=== PATIENT | female | born 1985 | race American Indian/Alaskan Native ===

== ENCOUNTER 2018-06-19 16:46 | Outpatient (CLI) | payer MEDICAID ==
[2018-06-19 17:49] LABS: Basophils # (Auto) 0.1 K/mm3 (0.0-0.1); Eosinophils # (Auto) 0.2 K/mm3 (0.0-0.4); Eosinophils % (Auto) 1.6 % (0.0-4.3); Hematocrit 32.3 % (30.3-42.9); Hemoglobin 10.7 gm/dl (10.1-14.3); Lymphocytes # (Auto) 3.2 K/mm3 (1.2-5.4); Lymphocytes % (Auto) 29.2 % (13.4-35.0); Mean Corpuscular HGB Conc 33 % (30-34); Mean Corpuscular Volume 88 fl (79-97); Monocytes # (Auto) 0.9 K/mm3 (0.0-0.8); Monocytes % (Auto) 8.1 % (0.0-7.3); Platelet Count 358 K/mm3 (140-440); Red Blood Count 3.67 M/mm3 (3.65-5.03); Red Cell Distribution Width 15.9 % (13.2-15.2)
[2018-06-19 18:11] LABS: Alanine Aminotransferase 19 units/L (7-56); Albumin 4.2 g/dL (3.9-5); BUN/Creatinine Ratio 25; Blood Urea Nitrogen 15 mg/dL (7-17); Calcium 8.7 mg/dL (8.4-10.2); Hemolysis Index 0
[2018-06-19 18:12] LABS: Chol/HDL Ratio 2.81 %
== END 2018-06-19 16:47 | disposition home or self-care (01) ==
LOC: XRAY 16:46
PROVIDERS: ATTEND Internal Medicine
DX: J45.909 Unspecified asthma, uncomplicated (principal)
CPT/HCPCS: 36415; 80053; 80061; 82785; 82803; 84436; 84443; 85025

== ENCOUNTER 2018-12-10 11:46 | Emergency (ER) | payer MEDICAID ==
[2018-12-10 12:02] VITALS: BP 121/81
[2018-12-10] MEDS ORDERED: IPRATROPIUM 0.02% NEBU 2.5 ML IH ONE (12:02)
--- NOTE | 2018-12-10 12:02 | Event Note ---
ED Screening Note Date of service: 12/10/18 Time: 11:59 ED Screening Note: 33 y o f with hx of Asthma presents with wheezing and sob x couple of days out of meds PCP sent here to be evaluated received breathing treatment at PCP This initial assessment/diagnostic orders/clinical plan/treatment(s) is/are subject to change based on patients health status, clinical progression and re- assessment by fellow clinical providers in the ED. Further treatment and workup at subsequent clinical providers discretion. Patient/guardian urged not to elope from the ED as their condition may be serious if not clinically assessed and managed. Initial orders include: solumedrol cough supressent albuterol inhaler and nebs refill [facility] eval
--- NOTE | 2018-12-10 12:38 | Emergency Department Report ---
Minor Respiratory - HPI Chief Complaint: Dyspnea/Respdistress Stated Complaint: ASTHMA ATTACK/SOB Time Seen by Provider: 12/10/18 11:59 Duration: Today Pain Location: Chest Severity: mild Minor Respiratory: Yes Able to Tolerate Fluids, Yes Cough, No Rhinorrhea, No Sore Throat, No Ear Pain, No Sick Contacts, No Hemoptysis, No Chest Pain, No Shortness of Breath, No Fever Other History: 33 yo sent by pcp for steroid injection due to asthma ae. he gave her a duoneb. she has minimal wheezing on exam. no fever or chills. no purulent sputum. no pain. ED Review of Systems ROS: Stated complaint: ASTHMA ATTACK/SOB Other details as noted in HPI Comment: All other systems reviewed and negative ED Past Medical Hx - Past Medical History Previous Medical History?: Yes Hx Asthma: Yes - Surgical History Past Surgical History?: Yes Additional Surgical History: - Family History Family history: no significant - Social History Smoking Status: Never Smoker Substance Use Type: None - Medications Home Medications: Home Medications Medication Instructions Recorded Confirmed Last Taken Type ALBUTEROL NEB's [Proventil 0.083% 2.5 mg IH TID PRN #1 box 12/10/18 Unknown Rx NEBS] Albuterol Sulfate [Proair 90 mcg IH QID PRN #1 aer.pow.ba 12/10/18 Unknown Rx Respiclick] Cetirizine HCl [ZyrTEC] 10 mg PO DAILY #30 capsule 12/10/18 Unknown Rx Fluticasone [Flonase] 1 spray NS QDAY #1 bottle 12/10/18 Unknown Rx predniSONE [Deltasone] 20 mg PO DAILY #5 tablet 12/10/18 Unknown Rx Minor Respiratory Exam - Exam General: Vital signs noted. No distress. Alert and acting appropriately. HEENT: Yes Moist Mucous Membranes, No Pharyngeal Erythema, No Pharyngeal Exudates Ear: Neither TM Bulge, Neither TM Erythema, Neither EAC Pain, Neither EAC Discharge Neck: Yes Supple, No Adenopathy Lungs: Yes Good Air Exchange, Yes Wheezes, No Ronchi, No Stridor Heart: Yes Regular, No Murmur Abdomen: No Tenderness, No Peritoneal Signs Skin: No Rash Neurologic: Alert and oriented, no deficits. Musculoskeletal: Unremarkable. ED Course Vital Signs 12/10/18 12:01 Temperature 98.2 F Pulse Rate 92 H Respiratory 16 Rate Blood Pressure 121/81 O2 Sat by Pulse 99 Oximetry ED Medical Decision Making - Radiology Data Radiology results: report reviewed, image reviewed - Medical Decision Making solumedrol and albuterol xray with pna dc home with dc plan of care and follow up Vital Signs 12/10/18 12:01 Temperature 98.2 F Pulse Rate 92 H Respiratory 16 Rate Blood Pressure 121/81 O2 Sat by Pulse 99 Oximetry - Differential Diagnosis asthma Critical care attestation.: If time is entered above; I have spent that time in minutes in the direct care of this critically ill patient, excluding procedure time. ED Disposition Clinical Impression: Asthma with acute exacerbation Disposition: DC-01 TO HOME OR SELFCARE Is pt being admited?: No Does the pt Need Aspirin: No Condition: Stable Instructions: Asthma (ED) Additional Instructions: meds as ordered today follow up with pcp Prescriptions: predniSONE [Deltasone] 20 mg PO DAILY #5 tablet Fluticasone [Flonase] 1 spray NS QDAY #1 bottle Albuterol Sulfate [Proair Respiclick] 90 mcg IH QID PRN #1 aer.pow.ba PRN Reason: Wheezing ALBUTEROL NEB's [Proventil 0.083% NEBS] 2.5 mg IH TID PRN #1 box PRN Reason: Wheezing Cetirizine HCl [ZyrTEC] 10 mg PO DAILY #30 capsule Referrals: SANJU MANTILLA MD [Staff Physician] - 3-5 Days Time of Disposition: 12:37
[2018-12-10] MEDS: methylPREDNISolone Sod Succinate 125 MG/2 ML INJ IV ONE ×2 (13:08→13:11)
--- NOTE | 2018-12-10 13:08 | XRay Report ---
CHEST PA AND LATERAL VIEWS INDICATION: Dyspnea. COMPARISON: None. FINDINGS: Support devices: None. Heart: Within normal limits. Lungs/Pleura: There are mild diffuse increased interstitial markings within both lungs. No consolidat ion, effusion, or pneumothorax. IMPRESSION: 1. Nonspecific mild diffuse increased interstitial markings. This could be seen in the setting of low er airways disease or atypical pneumonia. Radiographic follow-up is recommended after treatment. Signer Name: Gus Marlow MD Signed: 12/10/2018 1:03 PM Workstation Name: [id number]
[2018-12-10] MEDS ORDERED: methylPREDNISolone Sod Succinate 125 MG/2 ML INJ IM ONE (13:10)
== END 2018-12-10 13:34 | disposition home or self-care (01) ==
LOC: ED 11:46
DX: J45.901 Unspecified asthma with (acute) exacerbation (principal); Z79.899 Other long term (current) drug therapy; Z98.890 Other specified postprocedural states
CPT/HCPCS: 71046; 94640; 96372; 99283; J2930

== ENCOUNTER 2019-03-30 07:55 | Emergency (ER) | payer SELFPAY ==
[2019-03-30 08:16] VITALS: BP 131/89
[2019-03-30] MEDS ORDERED: IBUPROFEN 800 MG TAB PO ONE (10:09)
--- NOTE | 2019-03-30 10:13 | Emergency Department Report ---
ED General Adult HPI - General Chief complaint: Extremity Problem,Nontraumatic Stated complaint: RT HAND INJURED/PAIN Time Seen by Provider: 03/30/19 09:42 Source: patient Mode of arrival: Ambulatory Limitations: No Limitations - History of Present Illness Initial comments: 33-year-old -[place] female presents with complaints of right wrist pain 1 week. She denies any injury and states the pain occurs mainly with movement of the wrist. She states there is mild swelling. She reports she does follow with orthopedic doctor for trigger finger in the right hand. She denies any redness, fever/chills/sweats, history of cancer/HIV/diabetes. She rates her pain as 8/10 in severity. He denies trying any [id number] medication to help with the pain. She reports cold compresses seem to make the pain worse. -: Sudden Radiation: extremity Severity scale (0 -10): 8 Improves with: none Worsens with: movement - Related Data Previous Rx's Medication Instructions Recorded Last Taken Type ALBUTEROL NEB's [Proventil 0.083% 2.5 mg IH TID PRN #1 box 12/10/18 Unknown Rx NEBS] Albuterol Sulfate [Proair 90 mcg IH QID PRN #1 aer.pow.ba 12/10/18 Unknown Rx Respiclick] Cetirizine HCl [ZyrTEC] 10 mg PO DAILY #30 capsule 12/10/18 Unknown Rx Fluticasone [Flonase] 1 spray NS QDAY #1 bottle 12/10/18 Unknown Rx predniSONE [Deltasone] 20 mg PO DAILY #5 tablet 12/10/18 Unknown Rx Ibuprofen [Motrin 800 MG tab] 800 mg PO Q8HR PRN #21 tablet 03/30/19 Unknown Rx Allergies Allergy/AdvReac Type Severity Reaction Status Date / Time No Known Allergies Allergy Verified 12/10/18 12:02 ED Review of Systems ROS: Stated complaint: RT HAND INJURED/PAIN Other details as noted in HPI Comment: All other systems reviewed and negative Musculoskeletal: as per HPI ED Past Medical Hx - Past Medical History Previous Medical History?: Yes Hx Asthma: Yes - Surgical History Past Surgical History?: Yes Additional Surgical History: - Social History Smoking Status: Never Smoker Substance Use Type: None - Medications Home Medications: Home Medications Medication Instructions Recorded Confirmed Last Taken Type ALBUTEROL NEB's [Proventil 0.083% 2.5 mg IH TID PRN #1 box 12/10/18 Unknown Rx NEBS] Albuterol Sulfate [Proair 90 mcg IH QID PRN #1 aer.pow.ba 12/10/18 Unknown Rx Respiclick] Cetirizine HCl [ZyrTEC] 10 mg PO DAILY #30 capsule 12/10/18 Unknown Rx Fluticasone [Flonase] 1 spray NS QDAY #1 bottle 12/10/18 Unknown Rx predniSONE [Deltasone] 20 mg PO DAILY #5 tablet 12/10/18 Unknown Rx Ibuprofen [Motrin 800 MG tab] 800 mg PO Q8HR PRN #21 tablet 03/30/19 Unknown Rx ED Physical Exam - General Limitations: No Limitations General appearance: alert, in no apparent distress - Head Head exam: Present: atraumatic, normocephalic - Eye Eye exam: Present: normal appearance - Neck Neck exam: Present: normal inspection - Respiratory Respiratory exam: Absent: respiratory distress - Cardiovascular Cardiovascular Exam: Present: regular rate - Expanded Upper Extremity Exam Right Hand Wrist exam: Present: other (tenderness to palpation with mild swelling noted over the posterior aspect of the wrist without overlying erythema. Normal range of motion noted of the wrist and normal perfusion noted of right fingers.) Neurosensory exam: Present: radial nerve intact, ulnar nerve intact, median nerve intact Vascular: Present: normal capillary refill, radial pulse - Back Exam Back exam: Present: normal inspection - Neurological Exam Neurological exam: Present: alert, oriented X3 - Psychiatric Psychiatric exam: Present: normal affect, normal mood - Skin Skin exam: Present: warm, dry, intact, normal color. Absent: rash ED Course Vital Signs 03/30/19 08:14 Temperature 98.2 F Pulse Rate 86 Respiratory 16 Rate Blood Pressure 131/89 O2 Sat by Pulse 99 Oximetry ED Medical Decision Making - Radiology Data Radiology results: report reviewed RIGHT WRIST 4 VIEWS INDICATION: pain, mild swelling, no injury. COMPARISON: None. IMPRESSION: No acute osseous or soft tissue abnormality. No significant DJD. Unremarkable right wrist films. Signer Name: Juan Cage Jr, MD Signed: 03/30/2019 11:40 AM Workstation Name: [id number] - Medical Decision Making 33-year-old female here with right wrist pain for the past week. She denies any injury. No erythema or warmth noted on exam. Patient retains full range of motion of right wrist. X-ray is negative for any acute abnormalities. Vitals are normal. Patient is nontoxic and stable for discharge home. Patient is to follow up with her clinical specialist for further evaluation. Critical care attestation.: If time is entered above; I have spent that time in minutes in the direct care of this critically ill patient, excluding procedure time. ED Disposition Clinical Impression: Right wrist pain Disposition: TO HOME OR SELFCARE Is pt being admited?: No Condition: Stable Instructions: Arthralgia (ED) Additional Instructions: Please follow-up with your orthopedic doctor in 5-7 days for further evaluation. Prescriptions: Ibuprofen [Motrin 800 MG tab] 800 mg PO Q8HR PRN #21 tablet PRN Reason: pain
--- NOTE | 2019-03-30 11:44 | XRay Report ---
RIGHT WRIST 4 VIEWS INDICATION: pain, mild swelling, no injury. COMPARISON: None. IMPRESSION: No acute osseous or soft tissue abnormality. No significant DJD. Unremarkable right w rist films. Signer Name: Juan Cage Jr, MD Signed: 03/30/2019 11:40 AM Workstation Name: [id number]
== END 2019-03-30 12:22 | disposition home or self-care (01) ==
LOC: ED 07:55
DX: M25.531 Pain in right wrist (principal); J45.909 Unspecified asthma, uncomplicated; Z79.899 Other long term (current) drug therapy

== ENCOUNTER 2021-01-30 21:05 | Emergency (ER) | payer SELFPAY ==
[2021-01-30 21:10] VITALS: BP 138/81
[2021-01-30] MEDS ORDERED: IBUPROFEN 800 MG TAB PO ONE (21:55)
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
== END 2021-01-30 23:43 | disposition home or self-care (01) ==
LOC: ED 21:05
DX: S16.1XXA Strain of muscle, fascia and tendon at neck level, initial encounter (principal); S09.90XA Unspecified injury of head, initial encounter; J45.909 Unspecified asthma, uncomplicated; V49.49XA Driver injured in collision with other motor vehicles in traffic accident, initial encounter; Y93.89 Activity, other specified; Y92.89 Other specified places as the place of occurrence of the external cause; Y99.8 Other external cause status
CPT/HCPCS: 99282

== ENCOUNTER 2021-05-12 17:08 | Emergency (ER) | payer OTHER ==
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
[2021-05-12] MEDS: KETOROLAC 60 MG/2 ML INJ IM ONE ×2 (21:03→21:06)
[2021-05-12 21:18] VITALS: BP 134/87
== END 2021-05-12 21:20 | disposition home or self-care (01) ==
LOC: ED 17:08
DX: M54.9 Dorsalgia, unspecified (principal); M54.2 Cervicalgia; J45.909 Unspecified asthma, uncomplicated; Z98.890 Other specified postprocedural states; V89.2XXA Person injured in unspecified motor-vehicle accident, traffic, initial encounter; Y93.89 Activity, other specified; Y92.89 Other specified places as the place of occurrence of the external cause; Y99.8 Other external cause status
CPT/HCPCS: 99282; J1885